=== PATIENT | female | born 1945 | race Asian ===

== ENCOUNTER 2022-09-27 08:35 | Emergency (ER) | payer OTHER ==
[2022-09-27 08:50] VITALS: BMI 29.2
[2022-09-27 09:54] LABS: BASO % 0.9 % (0-2.0); EOS % 3.3 % (0-4.5); HEMATOCRIT 39.8 % (32.4-45.2); HEMOGLOBIN 13.1 GM/dL (10.7-15.3); MEAN CELL VOLUME 84.9 fl (80-96); MEAN PLT VOLUME 8.6 fl (7.5-11.1); MONO % 5.6 % (3.8-10.2); NEUT % 70.2 % (42.8-82.8); PLATELET COUNT 273 10^3/uL (134-434); RBC 4.69 M/mm3 (3.60-5.2); RDW 13.9 % (11.6-15.6); WHITE BLOOD COUNT 7.3 K/mm3 (4.0-10.0)
[2022-09-27 09:57] LABS: EPI CELLS 1 /uL (0-25.1); HYALINE CASTS 1 /uL (0-3.1); PH,URINE 8.5 (5.0-8.0); URINE APPEARANCE CLEAR; URINE BACTERIA 34 /uL (0-1359); URINE BILIRUBIN NEGATIVE (NEGATIVE); URINE COLOR YELLOW; URINE GLUCOSE (UA) NEGATIVE (NEGATIVE); URINE KETONE NEGATIVE (NEGATIVE); URINE LEUK ESTERASE 2+ (NEGATIVE); URINE NITRITE NEGATIVE (NEGATIVE); URINE PROTEIN NEGATIVE (NEGATIVE); URINE RBC 291 /uL (0-23.9); URINE UROBILINOGEN 0.2 mg/dL (0.2-1.0); URINE WBC 796 /uL (0-25.8)
[2022-09-27 10:04] LABS: ACTIVATED PTT 38.2 SECONDS (25.2-36.5); INR 1.04 (0.83-1.09); PROTHROMBIN TIME (PATIENT) 12.1 SEC (9.7-13.0)
[2022-09-27 10:17] LABS: CALCIUM 9.1 mg/dL (8.5-10.1)
[2022-09-27 10:18] LABS: ALBUMIN 3.3 g/dl (3.4-5.0); BLOOD UREA NITROGEN 17.4 mg/dL (7-18)
[2022-09-27 10:21] LABS: CREATININE 0.8 mg/dL (0.55-1.3)
[2022-09-27 10:23] LABS: BILIRUBIN,TOTAL 0.5 mg/dL (0.2-1); TOT PROT 7.2 g/dl (6.4-8.2)
[2022-09-27 10:26] LABS: N-TERMINAL BNP 123.1 pg/ml (5-450)
[2022-09-27] MEDS ORDERED: CEFTRIAXONE 1,000 MG in DEXTROSE 5%-WATER - 50 ML IVPB ONE (11:02)
[2022-09-27] MEDS ORDERED: CEFTRIAXONE 1 GM/50 ML BAG ONE (11:06)
[2022-09-27] MEDS ORDERED: SODIUM CHLORIDE 0.9% 500 ML INFUS.BAG IV ONE ×2 (14:58→17:24)
[2022-09-27 15:23] VITALS: RESP 20
[2022-09-27 18:03] VITALS: BP 105/38; PULSE 73
[2022-09-27 18:04] VITALS: TEMP 98
== END 2022-09-27 19:04 | disposition home or self-care (01) ==
LOC: JER 08:35
PROC: 3E033GC Introduction of Other Therapeutic Substance into Peripheral Vein, Percutaneous Approach (ICD-10-PCS; principal; 2022-09-27)
DX: R07.9 Chest pain, unspecified (principal); R06.02 Shortness of breath; N39.0 Urinary tract infection, site not specified
CPT/HCPCS: 36415; 71045-TC-FY; 75635-TC; 80053; 81003; 83605; 83880; 84484; 85025; 85610; 85730; 86850; 86900; 86901; 87086; 93005; 93010; 99285-25; Q9967